=== PATIENT | female | born 1985 | race Caucasian/White ===

== ENCOUNTER → 2021-07-11 | Emergency (ER) | payer OTHER ==
[~2021-07-11] VITALS: Ht 170.2 cm; Wt 65.8 kg
== END | disposition home or self-care (01) ==
LOC: ER 05:45
DX: F15.129 Other stimulant abuse with intoxication, unspecified (principal); Y92.89 Other specified places as the place of occurrence of the external cause; Z53.29 Procedure and treatment not carried out because of patient's decision for other reasons